=== PATIENT | female | born 1970 | race African-American/Black ===

== ENCOUNTER 2017-09-23 09:41 | Emergency (ER) | payer BC ==
[~2017-09-23] VITALS: Ht 162.6 cm; Wt 77.1 kg
[~2017-09-23 09:41] MED LIST: B12; MULTIVITAMIN
[2017-09-23] MEDS ORDERED: HYDROCODONE/APAP 5MG-325MG TAB PO ONE ×2 (10:00→10:15)
[2017-09-23 12:08] VITALS: BP 152/97
== END 2017-09-23 12:05 | disposition home or self-care (01) ==
LOC: FSED 09:41
DX: M79.671 Pain in right foot (principal); S92.341A Displaced fracture of fourth metatarsal bone, right foot, initial encounter for closed fracture; X50.1XXA Overexertion from prolonged static or awkward postures, initial encounter; Y93.01 Activity, walking, marching and hiking; Y92.488 Other paved roadways as the place of occurrence of the external cause; R26.2 Difficulty in walking, not elsewhere classified; F17.210 Nicotine dependence, cigarettes, uncomplicated
CPT/HCPCS: 99283

== ENCOUNTER 2018-06-14 13:26 | Emergency (ER) | payer BC ==
[~2018-06-14] VITALS: Ht 162.6 cm; Wt 81.6 kg
[2018-06-14] MEDS ORDERED: SODIUM CHLORIDE 0.9% 1000ML 1,000 ML IV STA (13:57)
[2018-06-14] MEDS ORDERED: MORPHINE SULFATE INJ 4 MG/ML INJ 1ML IV ONE (13:57)
[2018-06-14] MEDS ORDERED: ONDANSETRON HCL INJ 2MG/ML 2ML 2 MG/ML VIAL IV ONE (14:00)
[2018-06-14] MEDS ORDERED: FAMOTIDINE 20 MG/2 ML VIAL IV ONE (14:00)
[2018-06-14 14:43] LABS: BASOPHILS % 0.4 % (0.0-1.0); EOSINOPHILS # (AUTO) 0.1 (0.0-0.4); EOSINOPHILS % 0.5 % (0.0-6.0); HEMATOCRIT 39.6 % (34.2-44.1); HEMOGLOBIN 13.3 g/dL (12.0-16.0); LYMPHOCYTES # (AUTO) 2.2 (1.0-3.2); LYMPHOCYTES % 23.6 % (18.0-39.1); MEAN CORPUSCULAR HEMOGLOBIN 33.3 pg (28-32); MEAN CORPUSCULAR HGB CONC 33.6 g/dL (31-35); MONOCYTES # (AUTO) 0.6 (0.2-0.8); NEUTROPHILS # (AUTO) 6.4 (2.1-6.9); NEUTROPHILS % 69.2 % (38.7-80.0); PLATELET COUNT 229 x10e3/uL (140-360); RED CELL DISTRIBUTION WIDTH 11.6 % (11.7-14.4)
--- NOTE | 2018-06-14 15:42 | Diagnostic Imaging Report ---
ADDENDUM #1 ADDENDUM: There is also a 2.6 x 2.8 x 3.7 cm well circumscribed, non-aggressive appearing, fluid-density lesion (axial series 2, image 15) abutting the left posterior margin of the heart and left lower esophagus. The differential includes pericardial cyst, esophageal duplication cyst, and bronchogenic cyst. Signed by: Dr. Arlin Barboza MD on 06/16/2018 7:19 AM ORIGINAL REPORT EXAM: CT Abdomen and Pelvis WITH contrast INDICATION: Abdominal Pain COMPARISON: None. TECHNIQUE: Abdomen and pelvis were scanned utilizing a multidetector helical scanner from the lung base to the pubic symphysis after administration of IV contrast. Coronal and sagittal reformations were obtained. Routine protocol was performed. Scan was performed when during portal venous phase. IV CONTRAST: 100 mL of Isovue 370 ORAL CONTRAST: Water COMPLICATIONS: None RADIATION DOSE: Total DLP: 762.8 mGy*cm CTDIvol has been reviewed. It is below the limits set by the Radiation Protocol Committee (RPC). Dose modulation, iterative reconstruction, and/or weight based adjustment of the mA/kV was utilized to reduce the radiation dose to as low as reasonably achievable. FINDINGS: LINES and TUBES: None. LOWER THORAX: Unremarkable HEPATOBILIARY: No evidence of focal lesion. No biliary ductal dilation. GALLBLADDER: No radio-opaque stones or sludge. No wall thickening. SPLEEN: No splenomegaly. PANCREAS: No focal masses or ductal dilatation. ADRENALS: No adrenal nodules KIDNEYS/URETERS: Kidneys enhance symmetrically. No evidence of hydronephrosis, solid mass, or stone. There is a 1.8 cm simple cyst in the left inferior pole kidney. GI TRACT: There is scattered colonic diverticulosis. Along the cecum/proximal ascending colon, there is wall thickening and inflammatory changes, best seen on coronal series 300, image 44 with a possible diverticulum. Appendix is normal. Status post Francy-en-Y gastric bypass. No evidence of obstruction or internal hernia. PELVIC ORGANS/BLADDER: Unremarkable. LYMPH NODES: No lymphadenopathy. VESSELS: Unremarkable. PERITONEUM / RETROPERITONEUM: No free air or fluid. BONES AND SOFT TISSUES: No acute radiographic abnormality. CONCLUSION: Cecal / proximal ascending colonic wall thickening with surrounding inflammatory changes, with a possible diverticulum at this location. Differential includes cecal diverticulitis. Alternate considerations include infectious or inflammatory colitis or typhilitis (if there is a history of immunosuppression). No evidence of perforation or drainable fluid collection. Given asymmetric ascending colonic wall thickening, upon resolution of acute symptoms, suggest colonoscopy to exclude underlying mass. Normal appendix. Status post Francy en Y gastric bypass without evidence of obstruction. Signed by: Dr. Arlin Barboza MD on 06/14/2018 3:39 PM
[2018-06-14] MEDS ORDERED: MORPHINE SULFATE INJ 4 MG/ML INJ 1ML IV STA (16:02)
[2018-06-14] MEDS ORDERED: CIPROFLOXACIN 500 MG TAB PO ONE (16:15)
[2018-06-14] MEDS ORDERED: METRONIDAZOLE 500MG/NS 100ML 100 ML IV ONE (16:15)
[2018-06-14] MEDS ORDERED: LEVOFLOXACIN 500 MG TAB PO ONE (16:15)
[2018-06-14 17:44] VITALS: BP 161/104
== END 2018-06-14 17:52 | disposition home or self-care (01) ==
LOC: FSED 13:26
DX: R10.31 Right lower quadrant pain (principal); R11.0 Nausea; K57.32 Diverticulitis of large intestine without perforation or abscess without bleeding; Z98.84 Bariatric surgery status
CPT/HCPCS: 36415; 74177; 80048; 80076; 81003; 81025; 85025; 96374; 96375; 99284; J2270; J2405; J7030

== ENCOUNTER 2018-07-05 09:44 | Emergency (ER) | payer BC ==
[~2018-07-05] VITALS: Ht 162.6 cm; Wt 81.6 kg
--- OUTSIDE RECORDS SUMMARY | 2018-07-05 09:46 | XMS REPORT ---
Author Author [facility] Address Unknown Phone Unavailable Care Team Providers Care Meeting/Event Planner Name Role Phone Lashonda MAXWELL Unavailable Unavailable Problems This patient has no known problems. Allergies, Adverse Reactions, Alerts This patient has no known allergies or adverse reactions. Medications This patient has no known medications. Results Test Description Test Time Test Comments Text Results Atomic Results Result Comments CT ABD/PEL WITH CONTRAST-HOPD 2018-06-14 15:13:00 [place] [address] Patient Name: MARK ANTHONY HOLDEN MR #: [id number] : 1970 Age/Sex: 48/F Req #: [id number] Adm Physician: Ordered by: RAPHAEL MAXWELL MD Report #: [id number] Location: [facility] Room/Bed: Procedure: [id number] HOPD/CT ABD/PEL WITH CONTRAST-HOPD Exam Date: 06/14/18 Exam Time: 1451 REPORT STATUS: Signed ADDENDUM #1 ADDENDUM: There is also a 2.6 x 2.8 x 3.7 cm well circumscribed, non-aggressive appearing, fluid-density lesion (axial series 2, image 15) abutting the left posterior margin of the heart and left lower esophagus. The differential includes pericardial cyst, esophageal duplication cyst, and bronchogenic cyst. Signed by: Dr. Elaine Carpenter MD on 06/16/2018 7:19 AM ORIGINAL REPORT EXAM: CT Abdomen and Pelvis WITH contrast INDICATION: Abdominal Pain COMPARISON: None. TECHNIQUE: Abdomen and pelvis were scanned utilizing a multidetector helical scanner from the lung base to the pubic symphysis after administration of IV contrast. Coronal and sagittal reformations were obtained. Routine protocol was performed. Scan was performed when during portal venous phase. IV CONTRAST: 100 mL of Isovue 370 ORAL CONTRAST: Water COMPLICATIONS: None RADIATION DOSE: Total DLP: 762.8 mGy*cm CTDIvol has been revi ewed. It is below the limits set by the Radiation Protocol Committee (RPC). Dose modulation, iterative reconstruction, and/or weight based adjustment of the mA/kV was utilized to reduce the radiation dose to as low as reasonably achievable. FINDINGS: LINES and TUBES: None. LOWER THORAX: Unremarkable HEPATOBILIARY: No evidence of focal lesion. No biliary ductal dilation. GALLBLADDER: No radio-opaque stones or sludge. No wall thickening. SPLEEN: No splenomegaly. PANCREAS: No focal masses or ductal dilatation. ADRENALS: No adrenal nodules KIDNEYS/URETERS: Kidneys enhance symmetrically. No evidence of hydronephrosis, solid mass, or stone. There is a 1.8 cm simple cyst in the left inferior pole kidney. GI TRACT: There is scattered colonic diverticulosis. Along the cecum/proximal ascending colon, there is wall thickening and inflammatory changes, best seen on coronal series 300, image 44 with a possible diverticulum. Appendix is no rmal. Status post Francy-en-Y gastric bypass. No evidence of obstruction or internal hernia. PELVIC ORGANS/BLADDER: Unremarkable. LYMPH NODES: No lymphadenopathy. VESSELS: Unremarkable. PERITONEUM / RETROPERITONEUM: No free air or fluid. BONES AND SOFT TISSUES: No acute radiographic abnormality. CONCLUSION: Cecal / proximal ascending colonic wall thickening with surrounding inflammatory changes, with a possible diverticulum at this location. Differential includes cecal diverticulitis. Alternate considerations include infectious or inflammatory colitis or typhilitis (if there is a history of immunosuppression). No evidence of perforation or drainable fluid collection. Given asymmetric ascending colonic wall thickening, upon resolution of acute symptoms, suggest colonoscopy to exclude underlying mass. Normal appendix. Status post Francy en Y gastric bypass without evidence of obstruction. Signed by: Dr. Elaine Carpenter MD on 06/14/2018 3:39 PM Dictated By: ELAINE CARPENTER MD [id number] Transcribed By: SAEID on 06/14/18 1539 COPY TO: RAPHAEL MAXWELL MD
[2018-07-05] MEDS ORDERED: KETOROLAC TROMETHAMINE 30 MG/ML VIAL IV STA (10:11)
[2018-07-05] MEDS ORDERED: ONDANSETRON HCL INJ 2MG/ML 2ML 2 MG/ML VIAL IV STA (10:11)
[2018-07-05] MEDS ORDERED: SODIUM CHLORIDE 0.9% 1000ML 1,000 ML IV SCH (10:15)
--- NOTE | 2018-07-05 11:36 | Diagnostic Imaging Report ---
EXAM: CT Abdomen and Pelvis WITH contrast INDICATION: History of diverticulosis, blood in stool with nausea and vomiting. COMPARISON: 06/14/2018 TECHNIQUE: Abdomen and pelvis were scanned utilizing a multidetector helical scanner from the lung base to the pubic symphysis after administration of IV contrast. Coronal and sagittal reformations were obtained. Routine protocol was performed. Scan was performed when during portal venous phase. IV CONTRAST: 100 mL of Isovue 370 ORAL CONTRAST: Water COMPLICATIONS: None RADIATION DOSE: Total DLP: 745.86 mGy*cm CTDIvol has been reviewed. It is below the limits set by the Radiation Protocol Committee (RPC). Dose modulation, iterative reconstruction, and/or weight based adjustment of the mA/kV was utilized to reduce the radiation dose to as low as reasonably achievable. FINDINGS: LOWER THORAX: Cystic structure in the middle mediastinum anterior to the aorta and left lateral to the distal esophagus likely represents a bronchogenic cyst, pericardial cyst or esophageal duplication cyst. HEPATOBILIARY: No evidence of focal lesion. No biliary ductal dilation. GALLBLADDER: No radio-opaque stones or sludge. No wall thickening. SPLEEN: No splenomegaly. PANCREAS: No focal masses or ductal dilatation. ADRENALS: No adrenal nodules KIDNEYS/URETERS: Kidneys enhance symmetrically. No evidence of hydronephrosis, solid mass, or stone. Unchanged appearance of an exophytic left lower pole renal cyst. GI TRACT: Postsurgical changes associated with a gastric bypass. There is scattered colonic diverticulosis. The appendix is normal. Wall thickening of the distal descending colon/sigmoid colon may be infectious or inflammatory in origin. Previously described ascending colon wall thickening not present on current study. PELVIC ORGANS/BLADDER: Unremarkable. Multiple pelvic calcifications. LYMPH NODES: No lymphadenopathy. VESSELS: Unremarkable. PERITONEUM / RETROPERITONEUM: No free air or fluid. BONES AND SOFT TISSUES: No acute radiographic abnormality. Disc space narrowing at L5-S1. CONCLUSION: 1. Wall thickening of the distal descending colon/sigmoid colon may be infectious or inflammatory in origin. 2. Status post gastric bypass without evidence of obstruction. Signed by: Dr. Michele Damon DO on 07/05/2018 11:32 AM
[2018-07-05] MEDS ORDERED: MORPHINE SULFATE 2 MG/ML SYR 1ML IV STA (12:02)
[2018-07-05] MEDS ORDERED: LEVOFLOXACIN 500MG/D5W 100ML 100 ML IV ONE (12:15)
[2018-07-05] MEDS ORDERED: METRONIDAZOLE 500MG/NS 100ML 100 ML IV ONE (12:15)
[2018-07-05 12:50] VITALS: BP 167/99
[2018-07-05] MEDS ORDERED: IOPAMIDOL 370 MG/ML 50ML INFUS..BTL INJ ONE (13:00)
== END 2018-07-05 12:58 | disposition home or self-care (01) ==
LOC: FSED 09:44
DX: R10.31 Right lower quadrant pain (principal); R10.32 Left lower quadrant pain; R11.0 Nausea; K52.9 Noninfective gastroenteritis and colitis, unspecified; I10 Essential (primary) hypertension; Z98.84 Bariatric surgery status
CPT/HCPCS: 74177; 80053; 81003; 81025; 85025; 99284; J1885; J1956; J2270; J2405; Q9967

== ENCOUNTER 2019-07-05 11:52 | Emergency (ER) | payer BC ==
[~2019-07-05] VITALS: Ht 162.6 cm; Wt 77.1 kg
[2019-07-05] MEDS ORDERED: IBUPROFEN 600 MG TAB PO STA (12:04)
--- NOTE | 2019-07-05 12:51 | Diagnostic Imaging Report ---
EXAM: ANKLE 3VIEW LT - HOPD DATE: 07/05/2019 12:00 AM INDICATION: Right ankle pain COMPARISON: None FINDINGS: There is no evidence for acute fracture or dislocation. The ankle mortise is maintained. No focal lytic or blastic abnormality is identified. Posterior/plantar calcaneal spurring noted. The surrounding soft tissues are unremarkable without evidence for radiopaque foreign body. IMPRESSION: No acute radiographic abnormality identified within the left ankle. Signed by: Dr. Raul Bailey MD on 07/05/2019 12:48 PM
[2019-07-05] MEDS ORDERED: NAPROSYN500 MG PO (12:56)
[2019-07-05 13:29] VITALS: BP 159/89
== END 2019-07-05 13:09 | disposition home or self-care (01) ==
LOC: FSED 11:52
DX: S93.492A Sprain of other ligament of left ankle, initial encounter (principal); X50.1XXA Overexertion from prolonged static or awkward postures, initial encounter; Y93.01 Activity, walking, marching and hiking; Y92.008 Other place in unspecified non-institutional (private) residence as the place of occurrence of the external cause; Z98.84 Bariatric surgery status
CPT/HCPCS: 99283

== ENCOUNTER 2022-03-06 09:46 | Emergency (ER) | payer BC, OTHER ==
[~2022-03-06] VITALS: Ht 162.6 cm; Wt 83.7 kg
[~2022-03-06 09:46] MED LIST changes: +NAPROSYN500 MG PO
[2022-03-06] MEDS ORDERED: AMLODIPINE BESYL5 MG PO (10:25)
[2022-03-06] MEDS ORDERED: KETOROLAC TROMETHAMINE 30 MG/ML VIAL IV STA (10:26)
[2022-03-06] MEDS ORDERED: KETOROLAC TROMETHAMINE 30 MG/ML VIAL ONE (10:50)
[2022-03-06] MEDS ORDERED: IOPAMIDOL 370 MG/ML 100 ML INFUS..BTL INJ ONE (11:12)
[2022-03-06] MEDS ORDERED: ONDANSETRON HCL INJ 2MG/ML 2ML 2 MG/ML VIAL IV STA (11:33)
[2022-03-06] MEDS ORDERED: Morphine 4mg INJECTION 4 MG/ML INJ IV STA (11:33)
[2022-03-06] MEDS ORDERED: ULTRAM 50MG50 MG PO (12:11)
[2022-03-06] MEDS ORDERED: ONDANSETRON HCL INJ 2MG/ML 2ML 2 MG/ML VIAL ONE (12:18)
[2022-03-06] MEDS ORDERED: Morphine 4mg INJECTION 4 MG/ML INJ ONE (12:19)
== END 2022-03-06 12:32 | disposition home or self-care (01) ==
LOC: FSED 10:47
DX: R07.89 Other chest pain (principal); S30.1XXA Contusion of abdominal wall, initial encounter; W18.39XA Other fall on same level, initial encounter; Y93.01 Activity, walking, marching and hiking; Y92.89 Other specified places as the place of occurrence of the external cause; I10 Essential (primary) hypertension; F41.9 Anxiety disorder, unspecified; Z98.84 Bariatric surgery status; F17.210 Nicotine dependence, cigarettes, uncomplicated
CPT/HCPCS: 71250; 74177; 80048; 81003; 81025; 85025; 96374; 99284; J1885; J2270; J2405; Q9967

== ENCOUNTER 2023-06-28 09:06 | Emergency (ER) | payer BC ==
[~2023-06-28] VITALS: Ht 162.6 cm; Wt 86.8 kg
[~2023-06-28 09:06] MED LIST changes: +AMLODIPINE BESYL5 MG PO; +ULTRAM 50MG50 MG PO
[2023-06-28] MEDS ORDERED: BENICAR5 MG PO (09:30)
[2023-06-28] MEDS ORDERED: KETOROLAC TROMETHAMINE 30 MG/ML VIAL ONE (09:42)
[2023-06-28] MEDS ORDERED: FAMOTIDINE 20 MG/2 ML VIAL IV ONE (09:42)
[2023-06-28] MEDS ORDERED: DEXAMETHASONE SOD PHOS INJ 4 MG/ML SDV ONE (09:42)
[2023-06-28] MEDS ORDERED: SODIUM CHLORIDE 0.9% 500ML 500 ML ONE (09:42)
[2023-06-28] MEDS ORDERED: ONDANSETRON HCL INJ 2MG/ML 2ML 2 MG/ML VIAL ONE (09:42)
[2023-06-28] MEDS ORDERED: ACETAMINOPHEN 325 MG TAB ONE (09:43)
[2023-06-28] MEDS: FAMOTIDINE 20 MG/2 ML VIAL IV ONE (09:57)
[2023-06-28] MEDS: ONDANSETRON HCL INJ 2MG/ML 2ML 2 MG/ML VIAL IV ONE (09:58)
[2023-06-28] MEDS: DEXAMETHASONE SOD PHOS INJ 4 MG/ML SDV IV ONE (09:58)
[2023-06-28] MEDS: ACETAMINOPHEN 325 MG TAB PO ONE (09:58)
[2023-06-28] MEDS: KETOROLAC TROMETHAMINE 30 MG/ML VIAL IV ONE (09:59)
[2023-06-28] MEDS ORDERED: DIPHENHYDRAMINE25 MG PO (10:49)
[2023-06-28] MEDS ORDERED: ESGIC 50-325-41 EACH PF (10:49)
[2023-06-28] MEDS ORDERED: ONDANSETRON ODT4 MG PO (10:49)
[2023-06-28 11:22] VITALS: O2SAT 99
[2023-06-28] MEDS: SODIUM CHLORIDE 0.9% 500ML 500 ML IV STA (11:27)
== END 2023-06-28 11:22 | disposition home or self-care (01) ==
LOC: FSED 09:17
DX: R51.9 Headache, unspecified (principal); I16.0 Hypertensive urgency; I10 Essential (primary) hypertension; F41.9 Anxiety disorder, unspecified; Z98.84 Bariatric surgery status
CPT/HCPCS: 70450; 80053; 81003; 85025; 96374; 96375; 99284; J1100; J1885; J2405; J7040

== ENCOUNTER 2024-02-08 13:31 | Inpatient (IN) | payer BC ==
[~2024-02-08] VITALS: Ht 162.6 cm; Wt 90.8 kg
[~2024-02-08 13:31] MED LIST changes: +ACETAMINOPHEN-1 EAC4 PO; +BENICAR5 MG PO; +DIPHENHYDRAMINE25 MG PO; +ESGIC 50-325-41 EACH PF; +IBUPROFEN200 MG PO; +ONDANSETRON ODT4 MG PO
[2024-02-08] MEDS ORDERED: IOPAMIDOL 370 MG/ML 100 ML INFUS..BTL INJ ONE (15:06)
[2024-02-08] MEDS: ONDANSETRON HCL INJ 2MG/ML 2ML 2 MG/ML VIAL IV STA (15:42)
[2024-02-08] MEDS: SODIUM CHLORIDE 0.9% 1000ML 1,000 ML IV STA (15:43)
[2024-02-08] MEDS: KETOROLAC TROMETHAMINE 30 MG/ML VIAL IV STA ×2 (15:43→18:31)
[2024-02-08] MEDS ORDERED: PROMETHAZINE HCL (IM) 25 MG/ML VIAL IM PRN (18:15)
[2024-02-08] MEDS: SODIUM CHLORIDE 0.9% 1000ML 1,000 ML IV SCH (18:30)
[2024-02-08] MEDS: METRONIDAZOLE 500MG/NS 100ML 100 ML IV SCH (18:31)
[2024-02-08 20:26] VITALS: PULSE 72; RESP 18; TEMP 97.8
[2024-02-08 21:00] VITALS: BP_SYST 142; BP_SYST 151; BP_DIAS 75; BP_DIAS 97; PULSE 68; RESP 16; TEMP 99.2; O2SAT 100
[2024-02-08 21:25] VITALS: BP 151/97; PULSE 68; RESP 16; TEMP 99.2; O2SAT 100
[2024-02-08] MEDS: CEFEPIME 2 GM in SODIUM CHLORIDE 0.9% 100 ML IV SCH (21:31)
[2024-02-08] MEDS ORDERED: TRAZODONE HCL50 MG PO (21:33)
[2024-02-08] MEDS: Morphine 2mg Syringe 2 MG/ML SYR IV PRN (22:30)
[2024-02-09] VITALS (7 sets, daily range): BP systolic 109–134; BP diastolic 74–96; PULSE 60–78; RESP 16–18; TEMP 97.5–98.6; O2SAT 96–100
[2024-02-09 07:11] LABS: BASOPHILS # (AUTO) 0.1 (0.0-0.1); BASOPHILS % 0.8 % (0.0-1.0); EOSINOPHILS # (AUTO) 0.1 (0.0-0.4); EOSINOPHILS % 1.1 % (0.0-6.0); HEMATOCRIT 33.9 % (34.2-44.1); HEMOGLOBIN 10.9 g/dL (12.0-16.0); LYMPHOCYTES # (AUTO) 1.5 (1.0-3.2); LYMPHOCYTES % 20.5 % (18.0-39.1); MEAN CORPUSCULAR HEMOGLOBIN 32.2 pg (28-32); MEAN CORPUSCULAR HGB CONC 32.2 g/dL (31-35); MONOCYTES # (AUTO) 0.7 (0.2-0.8); NEUTROPHILS # (AUTO) 4.9 (2.1-6.9); NEUTROPHILS % 67.5 % (38.7-80.0); PLATELET COUNT 244 x10e3/uL (140-360); RED BLOOD COUNT 3.39 x10e6/uL (3.6-5.1); RED CELL DISTRIBUTION WIDTH 11.7 % (11.7-14.4)
[2024-02-09 07:44] LABS: ALBUMIN 2.8 g/dL (3.5-5.0); ALBUMIN/GLOBULIN RATIO 0.8 (0.8-2.0); ANION GAP 12.1 mmol/L (8-16); BILIRUBIN,TOTAL 0.6 mg/dL (0.2-1.2); CALCIUM 8.6 mg/dL (8.4-10.2); CREATININE, SERUM 0.76 mg/dL (0.57-1.11); POTASSIUM 4.1 mmol/L (3.5-5.1); TOTAL PROTEIN 6.1 g/dL (6.5-8.1)
[2024-02-09] MEDS: KETOROLAC TROMETHAMINE 30 MG/ML VIAL IV PRN (10:58)
[2024-02-09] MEDS: OLMESARTAN MEDOXOMIL 5 MG TABLET PO SCH (21:36)
[2024-02-09] MEDS: TRAZODONE HCL 50 MG TAB PO SCH (21:36)
[2024-02-10] VITALS (8 sets, daily range): BP systolic 106–133; BP diastolic 75–95; PULSE 59–73; RESP 17–18; TEMP 98–98.9; O2SAT 100
[2024-02-10 02:51] LABS: % IRON SATURATION 10 % (15-50); IRON 24 ug/dL (50-170); TOTAL IRON BINDING CAPACITY 241 ug/dL (261-478); TRANSFERRIN 172 mg/dL (180-382)
[2024-02-10 05:34] LABS: BASOPHILS % 0.5 % (0.0-1.0); EOSINOPHILS # (AUTO) 0.2 (0.0-0.4); HEMATOCRIT 35.8 % (34.2-44.1); HEMOGLOBIN 11.1 g/dL (12.0-16.0); LYMPHOCYTES # (AUTO) 1.5 (1.0-3.2); LYMPHOCYTES % 27.4 % (18.0-39.1); MEAN CORPUSCULAR VOLUME 103.2 fL (81-99); MONOCYTES # (AUTO) 0.6 (0.2-0.8); MONOCYTES % 11.5 % (4.4-11.3); NEUTROPHILS # (AUTO) 3.1 (2.1-6.9); NEUTROPHILS % 56.4 % (38.7-80.0); PLATELET COUNT 251 x10e3/uL (140-360); RED BLOOD COUNT 3.47 x10e6/uL (3.6-5.1); RED CELL DISTRIBUTION WIDTH 11.7 % (11.7-14.4); WHITE BLOOD COUNT 5.55 x10e3/uL (4.8-10.8)
[2024-02-10 05:53] LABS: ANION GAP 12.7 mmol/L (8-16); CALCIUM 8.8 mg/dL (8.4-10.2); CREATININE, SERUM 0.69 mg/dL (0.57-1.11); MAGNESIUM 1.8 MG/DL (1.3-2.1); PHOSPHORUS 3.9 MG/DL (2.3-4.7); POTASSIUM 3.7 mmol/L (3.5-5.1)
[2024-02-10] MEDS: ONDANSETRON HCL INJ 2MG/ML 2ML 2 MG/ML VIAL IV PRN (09:30)
[2024-02-11 00:17] VITALS: BP 112/78; PULSE 66; RESP 18; TEMP 98.1; O2SAT 100
[2024-02-11] MEDS: CYANOCOBALAMIN INJ 1,000 MCG/ML VIAL IM ONE (01:14)
[2024-02-11 04:38] VITALS: BP 125/75; PULSE 71; RESP 17; TEMP 98.2; O2SAT 100
[2024-02-11 08:25] VITALS: BP 140/83; PULSE 54; RESP 18; TEMP 98.1; O2SAT 100
[2024-02-11 08:45] VITALS: BP 140/83; PULSE 54; RESP 18; TEMP 98.1; O2SAT 100
[2024-02-11] MEDS: CYANOCOBALAMIN INJ 1,000 MCG/ML VIAL IM SCH (08:55)
[2024-02-11] MEDS: IRON SUCROSE 100 MG in SODIUM CHLORIDE 0.9% 100 ML IV SCH (08:55)
[2024-02-11 12:15] VITALS: BP 125/81; PULSE 62; RESP 17; TEMP 98.4; O2SAT 100
[2024-02-11 13:06] LABS: CLARITY,URINE CLEAR (CLEAR); COLOR,URINE YELLOW (YELLOW); PH,URINE 5.5 (5 - 7)
[2024-02-11 13:07] LABS: BILIRUBIN,URINE NEGATIVE (NEGATIVE); GLUCOSE, URINE NEGATIVE (NEGATIVE); KETONES,URINE NEGATIVE (NEGATIVE); LEUKOCYTE ESTERASE ,URINE NEGATIVE (NEGATIVE); NITRITE,URINE NEGATIVE (NEGATIVE); PROTEIN,URINE DIPSTICK NEGATIVE (NEGATIVE); URINE UROBILINOGEN 0.2 mg/dL (0.2 - 1)
[2024-02-11 13:08] LABS: BACTERIA,URINE FEW /HPF; EPITHELIAL CELLS,URINE MODERATE /LPF; RBC,URINE 0-5 /HPF (0-5); WBC,URINE (MAN) 0-5 /HPF (0-5)
[2024-02-11 15:56] VITALS: BP 155/93; PULSE 69; RESP 18; TEMP 98.8; O2SAT 100
[2024-02-11] MEDS ORDERED: METRONIDAZOLE500 MG PO (17:08)
[2024-02-11] MEDS ORDERED: VITAMIN C 500500 MG PO (17:08)
[2024-02-11] MEDS ORDERED: FEROSUL325 MG PO (17:08)
[2024-02-11] MEDS ORDERED: ONDANSETRON ODT4 MG PO (17:08)
[2024-02-11] MEDS ORDERED: VITAMIN B-121000 MCG PO (17:08)
== END 2024-02-11 17:20 | disposition home or self-care (01) | DRG 392 ==
LOC: FSED 13:36 → ERHOLD 18:07 → MED/SURG2 20:49
PROVIDERS: ADMIT Internal Medicine; ATTEND Internal Medicine
DX: K57.20 Diverticulitis of large intestine with perforation and abscess without bleeding (principal); N28.89 Other specified disorders of kidney and ureter; D64.9 Anemia, unspecified; I10 Essential (primary) hypertension; F41.9 Anxiety disorder, unspecified; E66.9 Obesity, unspecified; Z68.34 Body mass index [BMI] 34.0-34.9, adult; R63.4 Abnormal weight loss; Z98.84 Bariatric surgery status; Z88.0 Allergy status to penicillin
CPT/HCPCS: 36415; 74177; 80048; 80053; 80076; 81001; 81003; 82607; 82728; 82746; 83540; 83735; 84100; 84466; 85025; 85045; 99284; J0692; J1756; J1885; J2270; J2405; J3420; J7030; J7050; Q9967